=== PATIENT | female | born 1945 | race Caucasian/White ===

== ENCOUNTER 2016-10-10 09:42 | Emergency (ER) | payer OTHER ==
[~2016-10-10 09:42] MED LIST: ADVAIR250 INH; ALBUTEROL IH; ALEVE220 MG PO; APRES25 PO; ASAB PO; ATROVENT HFA17 MCG INH; BIOTIN10 MG PO; BIOTIN5 MG OR; BIOTIN5 MG PO; CALCIUM; CALTRA600D PO; CANNOT RECALL MEDS; CEFT5 PO; CLARITD24H PO; CO Q-10200 MG PO; COREG25 PO; COSAMIN DS1 TAB PO; COZ25 PO; COZ50 PO; CRESTOR10 PO; DOK100 MG PO; DULERA 100 MCG/13 GM INH; DUONEB INH; DURAFLEX PO; FISH OIL; FISH-EPA1000 MG PO; FLEX PO; FLONASE NAS; GLUCCHONDR PO; GLUCOSAMINEPO PO; HALF81 PO; HUMI PO; IPRA17AE; IPRA17AE INH; K-TABS10 MEQ PO; KLOR-CON20 MEQ PO; L20 PO; L40 PO; L80 PO; LIOR10 PO; LIQUITEARS OPH; MAGNESIUM; MAGNESIUM 250 MG; MAGNESIUM PO; MAGNESIUM TAURATE; MAGNESIUM TAURATE PO; MAGOX4 PO; MD ANDERSON MOUTHWAS; METHOC500B PO; MIRALAXPKT PO; MIRAPEX0.75 MG PO; MOBIC; MULTIVIT/MIN PO; NAIL-EX2.5 MG OR; NEUR100 PO; NIACIN 500 PO; NO HOME MEDS; NORCO1 TAB PO; NORV5 PO; PCET PO; POTASSIUM; PR12.5 PO; PRIN10 PO; PROAIR HFA INH; PROTONIX PO; PROVENTSOL INH; PROVHFA INH; REFRESH OPH; SINGULAIR1 PO; SPIRO25 PO; SPIRO50 PO; STERAPRED DS10 MG; TESS; ULTRACET PO; VITAMIN C100 MG PO; VITAMIN D1000 UNI1 PO; VITAMIN D31000 UNIT PO; VITAMIN D400 UNI1 PO; VITC500 PO; Z300 PO; ZOCOR20 PO; [UNRECOGNIZED DRUG - CODE]; [UNRECOGNIZED DRUG - OTHER]; [UNRECOGNIZED DRUG - OTHER]; [UNRECOGNIZED DRUG - OTHER]; [UNRECOGNIZED DRUG - OTHER] PO; [UNRECOGNIZED DRUG - OTHER] PO; [UNRECOGNIZED DRUG - REMARK] PO
[2017-03-25] MEDS ORDERED: VOLTAREN1 % TOP (14:13)
[2017-03-25] MEDS ORDERED: PROTONIX20 MG PO (14:13)
[2017-03-25] MEDS ORDERED: METHOC500B PO ×2 (14:13→14:30)
[2017-03-25] MEDS ORDERED: DSS PO (14:14)
[2017-03-25] MEDS ORDERED: COREG25 PO (14:14)
[2017-03-25] MEDS ORDERED: SEROQUEL25 PO (14:15)
[2017-03-25] MEDS ORDERED: CLARIT10 PO (14:15)
[2017-03-25] MEDS ORDERED: SPIRO25 PO (14:16)
[2017-03-25] MEDS ORDERED: KCL20UDL PO (14:16)
[2017-03-25] MEDS ORDERED: BIOTIN5 MG PO (14:16)
[2017-03-25] MEDS ORDERED: Z300 PO (14:24)
[2017-03-25] MEDS ORDERED: VITC500 PO (14:27)
[2017-03-25] MEDS ORDERED: VITAMIN D31000 UNIT PO (14:28)
== END 2016-10-10 12:00 | disposition home or self-care (01) ==
LOC: ER 09:42
DX: S40.022A Contusion of left upper arm, initial encounter (principal); S40.021A Contusion of right upper arm, initial encounter; S00.81XA Abrasion of other part of head, initial encounter; J44.9 Chronic obstructive pulmonary disease, unspecified; I13.0 Hypertensive heart and chronic kidney disease with heart failure and stage 1 through stage 4 chronic kidney disease, or unspecified chronic kidney disease; N18.9 Chronic kidney disease, unspecified; I50.9 Heart failure, unspecified; Z95.1 Presence of aortocoronary bypass graft; Z88.8 Allergy status to other drugs, medicaments and biological substances; Z88.2 Allergy status to sulfonamides; Z88.5 Allergy status to narcotic agent; Z79.899 Other long term (current) drug therapy; W19.XXXA Unspecified fall, initial encounter
CPT/HCPCS: 73060-LT; 73090-RT; 96372; 99285; A9270-GY; J2800

== ENCOUNTER 2016-11-21 11:02 | Emergency (ER) | payer OTHER ==
[2016-11-21 11:09] LABS: BASOPHILS 0.3 %; BASOPHILS ABSOLUTE 0.03 10/3/uL (0.0-0.16); EOSINOPHILS ABSOLUTE 0.22 10/3/uL (0.0-0.53); ER CBC TAT 0 Hrs 02 Mins; HEMATOCRIT 42.7 % (36.0-48.0); HEMOGLOBIN 13.9 g/dL (12.0-16.0); IMMATURE GRANULOCYTES 0.4 %; IMMATURE GRANULOCYTES ABSOLUTE 0.04 10/3/uL (0.0-0.11); LYMPHOCYTES 21.6 %; LYMPHOCYTES ABSOLUTE 2.42 10/3/uL (0.67-4.30); MEAN CORPUS HGB CONC 32.6 g/dL (32.0-36.0); MEAN CORPUSCULAR HEMOGLOB 30.5 pg (26.0-34.0); MEAN CORPUSCULAR VOLUME 93.8 fL (80-100); MEAN PLATELET VOLUME 10.7 fL (9.2-13.0); MONOCYTES 7.6 %; MONOCYTES ABSOLUTE 0.85 10/3/uL (0.21-1.20); NEUTROPHILS 68.1 %; NEUTROPHILS ABSOLUTE 7.64 10/3/uL (2.02-8.40); PLATELET COUNT 192 10/3/uL (150-400); RBC DISTRIBUTION WIDTH 15.9 % (12.0-16.0); RED CELL COUNT 4.55 10/6/uL (4.0-5.6); WHITE BLOOD CELLS 11.2 10/3/uL (4.5-10.5)
[2016-11-21 11:10] LABS: MANUAL DIFF NO %
[2016-11-21 11:28] LABS: A/G RATIO 1.4 (0.7-1.9); ALBUMIN 3.9 G/DL (3.5-5.0); ALKALINE PHOSPHATASE 58 U/L (45-117); BUN (BLOOD UREA NITROGEN) 14 MG/DL (6-23); CALCIUM, SERUM 10.3 MG/DL (8.5-10.4); CHLORIDE, SERUM 102 MMOL/L (96-112); CO2 (CARBON DIOXIDE) 37 MMOL/L (24-34); CREATININE 1.13 MG/DL (0.55-1.02); GFR AFRICAN AMERICAN 56 ML/MIN (>=60); GFR NON AFRICAN AMERICAN 49 ML/MIN (>=60); GLOBULIN 2.7 G/DL (2.5-4.1); GLUCOSE, SERUM 100 MG/DL (60-99); POTASSIUM, SERUM 3.9 MMOL/L (3.5-5.3); SGOT(AST) 16 U/L (5-40); SGPT(ALT) 18 U/L (5-65); SODIUM, SERUM 144 MMOL/L (135-148); TOTAL BILIRUBIN 0.4 MG/DL (0-1.2); TOTAL PROTEIN 6.6 G/DL (6.0-8.5)
[2016-11-21 13:37] LABS: ASCORBIC ACID (UR NOT ORDER) 40 (NEG); BILIRUBIN, URINE NEGATIVE (NEG); ER URINALYSIS TAT 0 Hrs 16 Mins; KETONE, URINE NEGATIVE (NEG); LEUKOCYTE ESTERASE(NOT OR TRACE (NEG); NITRITE (URINE) NEG (NEG); WBC (NOT ORDERED) (RFLEX) 1 (0-5)
[2017-03-25] MEDS ORDERED: METHOC500B PO ×2 (14:13→14:30)
[2017-03-25] MEDS ORDERED: VOLTAREN1 % TOP (14:13)
[2017-03-25] MEDS ORDERED: PROTONIX20 MG PO (14:13)
[2017-03-25] MEDS ORDERED: DSS PO (14:14)
[2017-03-25] MEDS ORDERED: COREG25 PO (14:14)
[2017-03-25] MEDS ORDERED: CLARIT10 PO (14:15)
[2017-03-25] MEDS ORDERED: SEROQUEL25 PO (14:15)
[2017-03-25] MEDS ORDERED: SPIRO25 PO (14:16)
[2017-03-25] MEDS ORDERED: KCL20UDL PO (14:16)
[2017-03-25] MEDS ORDERED: BIOTIN5 MG PO (14:16)
[2017-03-25] MEDS ORDERED: Z300 PO (14:24)
[2017-03-25] MEDS ORDERED: VITC500 PO (14:27)
[2017-03-25] MEDS ORDERED: VITAMIN D31000 UNIT PO (14:28)
== END 2016-11-21 16:15 | disposition home or self-care (01) ==
LOC: ER 11:02
PROVIDERS: Nurse Practitioner
DX: R10.84 Generalized abdominal pain (principal); D72.829 Elevated white blood cell count, unspecified; J44.9 Chronic obstructive pulmonary disease, unspecified; I13.0 Hypertensive heart and chronic kidney disease with heart failure and stage 1 through stage 4 chronic kidney disease, or unspecified chronic kidney disease; I50.9 Heart failure, unspecified; N18.9 Chronic kidney disease, unspecified; Z95.1 Presence of aortocoronary bypass graft; Z90.710 Acquired absence of both cervix and uterus; Z88.2 Allergy status to sulfonamides; Z88.1 Allergy status to other antibiotic agents; Z88.5 Allergy status to narcotic agent; Z88.8 Allergy status to other drugs, medicaments and biological substances; Z79.82 Long term (current) use of aspirin; Z79.899 Other long term (current) drug therapy
CPT/HCPCS: 74176; 80053; 81001; 83605; 83690; 85025; 96374; 96375; 99285; J2405

== ENCOUNTER 2016-12-12 11:33 | Inpatient (IN) | payer OTHER ==
--- NOTE | ~2016-12-12 | DS ---
Discharge Summary [facility] [address] [place]. [address] NAME: YOLIS BARRERA : 43 STATUS : DIS IN PAT#: [id number] AGE: 71 ADM/REG DATE : 12/12/16 MR#: [id number] REPORT SERV DATE: 12/23/16 DICTATED BY: YEN ZAMORA DATE: 12/22/16 REPORT STATUS : Draft TRANSCRIBED BY: MODL DATE: 12/22/16 ADMISSION DATE: 12/12/2016 DISCHARGE DATE: 12/22/2016 HOSPITAL COURSE: A 71-year-old female, resident at [facility] with known history of COPD, CKD 3, chronic right lower extremity ulcer. The patient has a known history of hypertension, lymphedema, chronic pain. The patient came in with encephalopathy, rapidly progressive the last 1-2 months. The patient had imaging including CT of the brain that did not show any acute pathology, just actually chronic microvascular white matter ischemic changes, chronic right-sided craniotomy for hemorrhagic intracranial bleed at that time. She then had a subsequent CT by me given her concern for non-improving encephalopathy and was found to be atrophy in hemisphere to be ventriculomegaly with moderate extensive old deep white matter ischemic changes. The patient given her unexplained rapid encephalopathy aside from dementia as an explanation had a lumbar puncture. It was a bloody tap and had 93 white blood cells. I asked for Infectious Disease. They thought it was a traumatic tap. Crypto was negative. The strep antigen was negative. Neisseria meningitis is negative. Influenza negative. Blood cultures, no growth to date. Gram stain, culture, CSF negative. As a result, the patient did not have any normal pressure hydrocephalus. Concerned that she did not have an increased opening pressures documented on lumbar puncture, so the patient likely has progressive dementia, unfortunately possible Pick, would defer to Neurology as an outpatient regarding the management. She should do bladder training exercises as an outpatient, do swallow study. No witnessed laryngeal penetration and tracheal aspiration, however, should have a mechanical diet as prescribed. DISCHARGE MEDICATIONS: Include: Diamox will not be given, rather just do Lasix 40 p.o. daily, KCl 10 mEq p.o. daily, allopurinol 300 p.o. daily, Artificial Tears, aspirin 81 p.o. daily, Voltaren gel, Colace, carvedilol 25 p.o. b.i.d., lactulose 30 mL p.o. t.i.d., titrate to three bowel movements a day, Megace, Protonix home dose, Seroquel 12.5 p.o. at bedtime. We will not give Florastor. Also give sodium bicarb 1300 p.o. b.i.d. just for seven days. See rest of my orders. CONSULTS: Infectious Disease. DISCHARGE DIAGNOSES: Encephalopathy due to progressive dementia, seems rapid in onset; complicated urinary tract infection. She already finished her ceftriaxone. Hyperalbuminemia, dementia, failure to thrive, restrictive lung disease, and hypertension. DICTATED BY: Yen Zamora DO WST/ZULEYMA Discharge Summary [address] [address] NAME: YOLIS BARRERA : 43 STATUS : DIS IN PAT#: [id number] AGE: 71 ADM/REG DATE : 12/12/16 MR#: [id number] REPORT SERV DATE: 12/23/16 DICTATED BY: YEN ZAMORA DATE: 12/22/16 REPORT STATUS : Draft TRANSCRIBED BY: ZULEYMA DATE: 12/22/16 Yen Zamora DO / [id number] CC: Milli Pillai M.D.
--- NOTE | ~2016-12-12 | HP ---
History And Physical [place] [id number] [facility] [place]. [address] NAME: YOLIS BARRERA : 43 STATUS : ADM IN [facility]#: [id number] AGE: 71 ADM/REG DATE : 12/12/16 MR#: [id number] REPORT SERV DATE: 12/12/16 DICTATED BY: SAW CONRAD DATE: 12/12/16 REPORT STATUS : Draft TRANSCRIBED BY: MODAshlee DATE: 12/12/16 DATE OF ADMISSION: 12/12/2016 CHIEF COMPLAINT: Encephalopathy unknown duration. HISTORY OF PRESENT ILLNESS: A 71-year-old white female residing at [facility], presenting with COPD, chronic kidney disease stage III, chronic right lower extremity ulcer, presenting with encephalopathy unknown duration. The patient was admitted for further evaluation regarding her change in mental status. The patient was able to provide history although a little bit slow. The patient does know that she is at [facility] and she came in to the ER because of urination/dysuria. The patient states that she has suprapubic discomfort but denies any hematuria. In addition, she denies any fevers, chills, nausea, vomiting, and back pain. She does have a history of UTI as per ER records. PAST MEDICAL HISTORY: As above. MEDICATIONS: The patient takes 1. Aspirin 81 mg p.o. daily. 2. Multivitamin one tab daily. 3. Potassium extended release 10 mEq daily. 4. Spironolactone 25 mg p.o. daily. 5. Vitamin C 500 mg two tablets p.o. daily. 6. Vitamin D3 1000 units 1 tab p.o. daily. 7. Allopurinol 300 mg p.o. daily. 8. MiraLAX powder 17 g p.o. daily. 9. Quetiapine 25 mg p.o. b.i.d. 10.Potassium chloride 10 mEq p.o. b.i.d. 11.Coreg 12.5 mg daily. 12.Breo Ellipta 100/25 one puff b.i.d. 13.Docusate 100 mg p.o. daily. 14.Lasix 20 mg p.o. three times a day. 15.Magnesium oxide 400 mg p.o. daily. 16.Methocarbamol 1 tab p.o. b.i.d. 17.Protonix 20 mg one tablet p.o. b.i.d. 18.Flovent 50 mcg 1 puff b.i.d. 19.Oxycodone 5/325, one tablet q.12 hours. 20.Liquid Tears 1.4% 2 drops b.i.d. 21.DuoNeb inhaled nebulizers q.4 hours p.r.n. 22.Singulair 10 mg p.o. b.i.d. 23.Voltaren Gel as directed 2 to 4 times per day. 24.Oxycodone 7.5/325 one tab q.6 hours p.r.n. for pain. ALLERGIES: TO METOPROLOL, BENAZEPRIL, SULFA, CODEINE, DARVON, AND ZITHROMAX. SOCIAL HISTORY: Nonsmoker nondrinker. History And Physical [address] [address] NAME: YOLIS BARRERA : 43 STATUS : ADM IN [facility]#: [id number] AGE: 71 ADM/REG DATE : 12/12/16 MR#: [id number] REPORT SERV DATE: 12/12/16 DICTATED BY: SAW CONRAD DATE: 12/12/16 REPORT STATUS : Draft TRANSCRIBED BY: ZULEYMA DATE: 12/12/16 FAMILY HISTORY: Significant for hypertension and coronary artery disease. REVIEW OF SYSTEMS: 10-point review of systems conducted, which were negative except for above complaints. PHYSICAL EXAMINATION: VITAL SIGNS: Temperature 97.6, pulse of 94, respiratory rate 16, blood pressure 132/80, and O2 saturation 95% on room air. HEAD AND NECK: Normocephalic, atraumatic. CARDIOVASCULAR: S1, S2. Regular rate and rhythm. LUNGS: Good air entry. No wheeze, rales, or rhonchi. ABDOMEN: Soft. Positive tenderness, suprapubic, nondistended. Positive bowel sounds. No organomegaly. EXTREMITIES: No clubbing, cyanosis, or edema. NEUROLOGIC: The patient is awake and alert. Oriented to time and place. No focal deficits appreciated. LABORATORY DATA: Sodium 141, potassium 3.5, chloride 101, bicarb 36, BUN 22, creatinine 1.8, glucose 120, GFR 51, calcium 10.8, total protein 7.1, albumin 3.8, globulin 3.3, total bilirubin 1.4, alkaline phosphatase 65, ALT 19, and AST 17. Chest x-ray is negative for acute infiltrates. WBC 13.1, hemoglobin 14.5, hematocrit 43.7, and platelets 208. ASSESSMENT AND PLAN: 1. Encephalopathy secondary to UTI. We will start the patient on Rocephin 1 g IV every 24 hours. In addition, start blood cultures x2 and IV fluids, half NS at 60 mL an hour. 2. Urinary tract infection secondary cause of problem #1. Again blood culture x2, on Rocephin. 3. COPD currently stable. No signs of shortness of breath. Continue the patient's breathing treatment DuoNebs. 4. Chronic kidney disease, stage III. Currently the patient's GFR is 51. Continue IV hydration. The patient states she has decreased liquid and p.o. intake due to not having any appetite. More likely this is secondary to UTI. 5. DVT prophylaxis. Start the patient on heparin. NIMESH/ZULEYMA Saw Conrad MD / [id number] CC: Saw Conrad MD History And Physical [address] [address] NAME: YOLIS BARRERA : 43 STATUS : ADM IN [facility]#: [id number] AGE: 71 ADM/REG DATE : 12/12/16 MR#: [id number] REPORT SERV DATE: 12/12/16 DICTATED BY: SAW CONRAD DATE: 12/12/16 REPORT STATUS : Draft TRANSCRIBED BY: MODL DATE: 12/12/16 Bud Kaur M.D.
--- NOTE | ~2016-12-12 | CN ---
Consultation Report [facility] [address] [place]. [address] NAME: YOLIS BARRERA : 43 STATUS : ADM IN PAT#: [id number] AGE: 71 ADM/REG DATE : 12/12/16 MR#: [id number] REPORT SERV DATE: 12/19/16 DICTATED BY: KATEY CALIXTO DATE: 12/19/16 REPORT STATUS : Draft TRANSCRIBED BY: MODL DATE: 12/19/16 INFECTIOUS DISEASE CONSULTATION DATE OF CONSULTATION: REASON FOR REFERRAL: Evaluation and treatment of possible [employer] infection. HISTORY OF PRESENT ILLNESS: The patient is a 71-year-old female. She has a history of chronic obstructive pulmonary disease, chronic renal insufficiency, venous stasis ulcer in lower extremities. She has had worsening mental status over a number of months and according to the family, Dr. Hood thought a more precipitous decline in the last two months with less and less activity, more difficult and slowed speech, difficult memory, a much more rapid course than one would expect from simple dementia. For this reason, she was admitted for workup. She has had no fevers, chills, malaise, or flu-like symptoms. She has not complained of a headache, so essentially there has not been anything that would point to a central nervous system infection. She did have some dysuria, and a urinalysis was checked at admission and she did have marked pyuria, and a culture grew greater than 100,000 colonies of E coli, so it was thought that possibly things are worse because of urinary tract infection, but an appropriate antibiotic in the form of Rocephin has been given now for a week and she has demonstrated no improvement. She has had imaging that shows evidence from a past craniotomy, but shows no acute changes. A lumbar puncture was performed and it was abnormal, but the spinal fluid was very bloody. She became combative while the needle was in, and the initially clear fluid that was seen prior to them being able to collect it quickly became bloody. The analysis showed 23,000 red cells; 93 white cells; 12% lymphs; 12% monos; 76% segs; glucose of 56; protein 90.4 and has been submitted for cultures. PAST MEDICAL HISTORY: Otherwise, noncontributory. MEDICATIONS: She is on Rocephin. ALLERGIES: SHE HAS NO KNOWN ANTIMICROBIAL ALLERGIES. SOCIAL HISTORY: She is retired certified medical asst. Nonsmoker. No history of alcohol or substance abuse. PHYSICAL EXAMINATION: GENERAL: She is nontoxic appearing. She wakes up. She actually knew me from her work in the past and immediately recognized me, but speech response to questions is slowed and much different from the last time I saw her two years ago. VITAL SIGNS: Her temperature has been normal throughout the week that she has been here and presently is 98.4 with a pulse of 74, respirations 18, blood pressure 136/62, weight 55 kg. HEENT: Sclerae are clear. No oral lesions. NECK: Supple without meningeal signs or lymphadenopathy. LUNGS: Clear. Consultation Report [place] [id number] [facility] [place]. [address] NAME: YOLIS BARRERA : 43 STATUS : ADM IN [facility]#: [id number] AGE: 71 ADM/REG DATE : 12/12/16 MR#: [id number] REPORT SERV DATE: 12/19/16 DICTATED BY: KATEY CALIXTO DATE: 12/19/16 REPORT STATUS : Draft TRANSCRIBED BY: ZULEYMA DATE: 12/19/16 HEART: Regular rate and rhythm. ABDOMEN: Soft and nontender. Positive bowel sounds. SKIN: There are no rashes noted. LABORATORY DATA: Her white blood cell count had been 13.1 when she came in, down to 9.1 on 12/13, 14.7 yesterday, 10.9 today with hematocrit of 37 and platelets 193. BUN and creatinine 6 and 0.63. Procalcitonin less than 0.05. Blood cultures taken at admission have remained negative. IMPRESSION: I suspect that the lumbar puncture results are all due to the traumatic tap. There is nothing to suggest infection. The only exception might be Cryptococcus, which would cause a much more subtle picture and subtle CSF findings. RECOMMENDATIONS: 1. Would not recommend that any new antimicrobials be added at this point based on the lumbar puncture. 2. Agree with the Rocephin for the UTI, should be able to stop that soon. 3. Check cryptococcal antigen on the spinal fluid. 4. We will follow up again tomorrow. I appreciate very much your consulting on this patient. LAURA/ZULEYMA Katey Calixto M.D. / [id number] CC: Milli Pillai M.D.
[2016-12-12 12:35] LABS: BASOPHILS 0.2 %; BASOPHILS ABSOLUTE 0.02 10/3/uL (0.0-0.16); EOSINOPHILS 0.8 %; HEMATOCRIT 43.7 % (36.0-48.0); HEMOGLOBIN 14.5 g/dL (12.0-16.0); IMMATURE GRANULOCYTES 0.2 %; IMMATURE GRANULOCYTES ABSOLUTE 0.02 10/3/uL (0.0-0.11); LYMPHOCYTES 16.2 %; LYMPHOCYTES ABSOLUTE 2.13 10/3/uL (0.67-4.30); MANUAL DIFF NO %; MEAN CORPUS HGB CONC 33.2 g/dL (32.0-36.0); MEAN CORPUSCULAR HEMOGLOB 30.8 pg (26.0-34.0); MEAN CORPUSCULAR VOLUME 92.8 fL (80-100); MEAN PLATELET VOLUME 11.2 fL (9.2-13.0); MONOCYTES 9.6 %; MONOCYTES ABSOLUTE 1.26 10/3/uL (0.21-1.20); NEUTROPHILS ABSOLUTE 9.59 10/3/uL (2.02-8.40); PLATELET COUNT 208 10/3/uL (150-400); RBC DISTRIBUTION WIDTH 15.2 % (12.0-16.0); RED CELL COUNT 4.71 10/6/uL (4.0-5.6); WHITE BLOOD CELLS 13.1 10/3/uL (4.5-10.5)
[2016-12-12 12:55] LABS: ALBUMIN 3.8 G/DL (3.5-5.0); ALKALINE PHOSPHATASE 65 U/L (45-117); CALCIUM, SERUM 10.8 MG/DL (8.5-10.4); CHLORIDE, SERUM 101 MMOL/L (96-112); CO2 (CARBON DIOXIDE) 36 MMOL/L (24-34); CREATININE 1.08 MG/DL (0.55-1.02); GFR AFRICAN AMERICAN 59 ML/MIN (>=60); GFR NON AFRICAN AMERICAN 51 ML/MIN (>=60); GLUCOSE, SERUM 120 MG/DL (60-99); POTASSIUM, SERUM 3.5 MMOL/L (3.5-5.3); SGOT(AST) 17 U/L (5-40); SGPT(ALT) 19 U/L (5-65); SODIUM, SERUM 141 MMOL/L (135-148); TOTAL PROTEIN 7.1 G/DL (6.0-8.5); TROPONIN I <0.02 NG/ML (<0.05)
[2016-12-12 12:56] LABS: A/G RATIO 1.2 (0.7-1.9); BUN (BLOOD UREA NITROGEN) 23 MG/DL (6-23); GLOBULIN 3.3 G/DL (2.5-4.1); TOTAL BILIRUBIN 1.4 MG/DL (0-1.2)
[2016-12-12 12:59] LABS: ASCORBIC ACID (UR NOT ORDER) 40 (NEG); BILIRUBIN, URINE NEGATIVE (NEG); ER URINALYSIS TAT 0 Hrs 12 Mins; KETONE, URINE NEGATIVE (NEG); LEUKOCYTE ESTERASE(NOT OR LARGE (NEG); NITRITE (URINE) NEG (NEG); WBC (NOT ORDERED) (RFLEX) > 182 (0-5)
[2016-12-12] MEDS ORDERED: HALF81 PO (14:08)
[2016-12-12] MEDS ORDERED: MULTIVITAMI1 PO (14:09)
[2016-12-12] MEDS ORDERED: KLOR-CON 1010 MEQ PO (14:10)
[2016-12-12] MEDS ORDERED: SPIRO25 PO (14:10)
[2016-12-12] MEDS ORDERED: VITC500 PO (14:11)
[2016-12-12] MEDS ORDERED: VITAMIN D31000 UNIT PO (14:11)
[2016-12-12] MEDS ORDERED: Z300 PO (14:12)
[2016-12-12] MEDS ORDERED: SEROQUEL25 PO (14:13)
[2016-12-12] MEDS ORDERED: METPAKSF PO (14:13)
[2016-12-12] MEDS ORDERED: KCL20UDL PO (14:17)
[2016-12-12] MEDS ORDERED: COREG12 PO (14:19)
[2016-12-12] MEDS ORDERED: BREO ELLIPTA INH (14:22)
[2016-12-12] MEDS ORDERED: DOK100 MG PO (14:23)
[2016-12-12] MEDS ORDERED: L40 PO (14:23)
[2016-12-12] MEDS ORDERED: METHOC500B PO (14:24)
[2016-12-12] MEDS ORDERED: MAGOX4 PO (14:24)
[2016-12-12] MEDS ORDERED: PROTONIX20 MG PO (14:25)
[2016-12-12] MEDS ORDERED: FLOVENT DISK50 MCG INH (14:26)
[2016-12-12] MEDS ORDERED: PCET PO (14:27)
[2016-12-12] MEDS ORDERED: LIQUID TEARS OPH (14:28)
[2016-12-12] MEDS ORDERED: DUONEB INH ×2 (14:29→14:31)
[2016-12-12] MEDS ORDERED: SINGULAIR1 PO (14:31)
[2016-12-12] MEDS ORDERED: ACET500CAP PO (14:32)
[2016-12-12] MEDS ORDERED: VOLTAREN1 % TOP (14:33)
[2016-12-12] MEDS ORDERED: PERCOCET 7.5/321 TAB PO (14:34)
[2016-12-13 06:35] LABS: BASOPHILS 0.2 %; BASOPHILS ABSOLUTE 0.02 10/3/uL (0.0-0.16); EOSINOPHILS ABSOLUTE 0.18 10/3/uL (0.0-0.53); HEMATOCRIT 40.2 % (36.0-48.0); HEMOGLOBIN 13.1 g/dL (12.0-16.0); IMMATURE GRANULOCYTES 0.1 %; IMMATURE GRANULOCYTES ABSOLUTE 0.01 10/3/uL (0.0-0.11); LYMPHOCYTES 35.2 %; LYMPHOCYTES ABSOLUTE 3.21 10/3/uL (0.67-4.30); MEAN CORPUS HGB CONC 32.6 g/dL (32.0-36.0); MEAN CORPUSCULAR HEMOGLOB 30.6 pg (26.0-34.0); MEAN CORPUSCULAR VOLUME 93.9 fL (80-100); MEAN PLATELET VOLUME 11.8 fL (9.2-13.0); MONOCYTES 11.5 %; MONOCYTES ABSOLUTE 1.05 10/3/uL (0.21-1.20); NEUTROPHILS ABSOLUTE 4.64 10/3/uL (2.02-8.40); PLATELET COUNT 202 10/3/uL (150-400); RBC DISTRIBUTION WIDTH 15.2 % (12.0-16.0); RED CELL COUNT 4.28 10/6/uL (4.0-5.6); WHITE BLOOD CELLS 9.1 10/3/uL (4.5-10.5)
[2016-12-13 06:36] LABS: MANUAL DIFF NO %
[2016-12-13 06:50] LABS: A/G RATIO 1.1 (0.7-1.9); ALBUMIN 3.3 G/DL (3.5-5.0); ALKALINE PHOSPHATASE 57 U/L (45-117); CALCIUM, SERUM 10.3 MG/DL (8.5-10.4); CHLORIDE, SERUM 102 MMOL/L (96-112); CO2 (CARBON DIOXIDE) 33 MMOL/L (24-34); CREATININE 0.86 MG/DL (0.55-1.02); GFR AFRICAN AMERICAN 78 ML/MIN (>=60); GFR NON AFRICAN AMERICAN 67 ML/MIN (>=60); GLOBULIN 2.9 G/DL (2.5-4.1); PHOSPHORUS, SERUM 3.1 MG/DL (2.5-4.5); POTASSIUM, SERUM 3.3 MMOL/L (3.5-5.3); SGOT(AST) 19 U/L (5-40); SGPT(ALT) 19 U/L (5-65); SODIUM, SERUM 139 MMOL/L (135-148); TOTAL PROTEIN 6.2 G/DL (6.0-8.5)
[2016-12-13 06:52] LABS: BUN (BLOOD UREA NITROGEN) 19 MG/DL (6-23); GLUCOSE, SERUM 81 MG/DL (60-99)
[2016-12-14 15:37] LABS: BASOPHILS 0.2 %; BASOPHILS ABSOLUTE 0.02 10/3/uL (0.0-0.16); EOSINOPHILS 0.3 %; EOSINOPHILS ABSOLUTE 0.04 10/3/uL (0.0-0.53); HEMATOCRIT 37.2 % (36.0-48.0); HEMOGLOBIN 12.3 g/dL (12.0-16.0); IMMATURE GRANULOCYTES 0.3 %; IMMATURE GRANULOCYTES ABSOLUTE 0.04 10/3/uL (0.0-0.11); LYMPHOCYTES ABSOLUTE 1.21 10/3/uL (0.67-4.30); MEAN CORPUS HGB CONC 33.1 g/dL (32.0-36.0); MEAN CORPUSCULAR VOLUME 93.7 fL (80-100); MEAN PLATELET VOLUME 11.5 fL (9.2-13.0); MONOCYTES 3.7 %; MONOCYTES ABSOLUTE 0.45 10/3/uL (0.21-1.20); NEUTROPHILS 85.5 %; PLATELET COUNT 161 10/3/uL (150-400); RBC DISTRIBUTION WIDTH 14.9 % (12.0-16.0); RED CELL COUNT 3.97 10/6/uL (4.0-5.6); WHITE BLOOD CELLS 12.2 10/3/uL (4.5-10.5)
[2016-12-14 15:38] LABS: MANUAL DIFF NO %
[2016-12-14 16:16] LABS: CALCIUM, SERUM 10.2 MG/DL (8.5-10.4); CHLORIDE, SERUM 105 MMOL/L (96-112); CO2 (CARBON DIOXIDE) 30 MMOL/L (24-34); CREATININE 0.83 MG/DL (0.55-1.02); GFR AFRICAN AMERICAN 82 ML/MIN (>=60); GFR NON AFRICAN AMERICAN 70 ML/MIN (>=60); POTASSIUM, SERUM 3.8 MMOL/L (3.5-5.3); SODIUM, SERUM 141 MMOL/L (135-148)
[2016-12-14 16:17] LABS: BUN (BLOOD UREA NITROGEN) 13 MG/DL (6-23); GLUCOSE, SERUM 104 MG/DL (60-99)
[2016-12-14 16:19] LABS: CALCIUM IONIZED 5.1 MG/DL (3.80-4.80)
[2016-12-14 17:16] LABS: PROCALCITONIN <0.05 ng/mL (<0.5)
[2016-12-15 04:42] LABS: BUN (BLOOD UREA NITROGEN) 12 MG/DL (6-23); CHLORIDE, SERUM 108 MMOL/L (96-112); CO2 (CARBON DIOXIDE) 28 MMOL/L (24-34); CREATININE 0.74 MG/DL (0.55-1.02); GFR AFRICAN AMERICAN 94 ML/MIN (>=60); GFR NON AFRICAN AMERICAN 81 ML/MIN (>=60); POTASSIUM, SERUM 3.5 MMOL/L (3.5-5.3); SODIUM, SERUM 144 MMOL/L (135-148)
[2016-12-15 04:44] LABS: GLUCOSE, SERUM 79 MG/DL (60-99)
[2016-12-15 15:00] LABS: ASCORBIC ACID (UR NOT ORDER) NEG (NEG); BILIRUBIN, URINE NEGATIVE (NEG); KETONE, URINE TRACE MG/DL (NEG); LEUKOCYTE ESTERASE(NOT OR LARGE (NEG)
[2016-12-15 15:01] LABS: WBC (NOT ORDERED) (RFLEX) > 182 (0-5)
[2016-12-16 04:59] LABS: BASOPHILS 0.2 %; BASOPHILS ABSOLUTE 0.02 10/3/uL (0.0-0.16); EOSINOPHILS 2.1 %; EOSINOPHILS ABSOLUTE 0.24 10/3/uL (0.0-0.53); HEMATOCRIT 38.7 % (36.0-48.0); HEMOGLOBIN 12.7 g/dL (12.0-16.0); IMMATURE GRANULOCYTES 0.2 %; IMMATURE GRANULOCYTES ABSOLUTE 0.02 10/3/uL (0.0-0.11); LYMPHOCYTES 21.9 %; LYMPHOCYTES ABSOLUTE 2.56 10/3/uL (0.67-4.30); MANUAL DIFF NO %; MEAN CORPUS HGB CONC 32.8 g/dL (32.0-36.0); MEAN CORPUSCULAR HEMOGLOB 30.9 pg (26.0-34.0); MEAN CORPUSCULAR VOLUME 94.2 fL (80-100); MEAN PLATELET VOLUME 11.8 fL (9.2-13.0); MONOCYTES 5.7 %; MONOCYTES ABSOLUTE 0.66 10/3/uL (0.21-1.20); NEUTROPHILS 69.9 %; NEUTROPHILS ABSOLUTE 8.17 10/3/uL (2.02-8.40); PLATELET COUNT 188 10/3/uL (150-400); RBC DISTRIBUTION WIDTH 15.2 % (12.0-16.0); RED CELL COUNT 4.11 10/6/uL (4.0-5.6); WHITE BLOOD CELLS 11.7 10/3/uL (4.5-10.5)
[2016-12-16 05:12] LABS: BUN (BLOOD UREA NITROGEN) 11 MG/DL (6-23); CALCIUM, SERUM 10.5 MG/DL (8.5-10.4); CHLORIDE, SERUM 111 MMOL/L (96-112); CO2 (CARBON DIOXIDE) 27 MMOL/L (24-34); CREATININE 0.71 MG/DL (0.55-1.02); GFR AFRICAN AMERICAN 99 ML/MIN (>=60); GFR NON AFRICAN AMERICAN 85 ML/MIN (>=60); GLUCOSE, SERUM 87 MG/DL (60-99); POTASSIUM, SERUM 3.6 MMOL/L (3.5-5.3); SODIUM, SERUM 146 MMOL/L (135-148)
[2016-12-16 05:48] LABS: PROCALCITONIN <0.05 ng/mL (<0.5)
[2016-12-18 10:21] LABS: BASOPHILS 0.3 %; BASOPHILS ABSOLUTE 0.05 10/3/uL (0.0-0.16); EOSINOPHILS 2.5 %; EOSINOPHILS ABSOLUTE 0.37 10/3/uL (0.0-0.53); HEMATOCRIT 37.7 % (36.0-48.0); HEMOGLOBIN 12.2 g/dL (12.0-16.0); IMMATURE GRANULOCYTES 1.4 %; LYMPHOCYTES 16.5 %; LYMPHOCYTES ABSOLUTE 2.42 10/3/uL (0.67-4.30); MEAN CORPUS HGB CONC 32.4 g/dL (32.0-36.0); MEAN CORPUSCULAR HEMOGLOB 29.6 pg (26.0-34.0); MEAN CORPUSCULAR VOLUME 91.5 fL (80-100); MEAN PLATELET VOLUME 12.4 fL (9.2-13.0); MONOCYTES 7.6 %; MONOCYTES ABSOLUTE 1.12 10/3/uL (0.21-1.20); NEUTROPHILS 71.7 %; NEUTROPHILS ABSOLUTE 10.53 10/3/uL (2.02-8.40); PLATELET COUNT 186 10/3/uL (150-400); RBC DISTRIBUTION WIDTH 15.3 % (12.0-16.0); RED CELL COUNT 4.12 10/6/uL (4.0-5.6); WHITE BLOOD CELLS 14.7 10/3/uL (4.5-10.5)
[2016-12-18 10:23] LABS: MANUAL DIFF NO %
[2016-12-18 10:26] LABS: BUN (BLOOD UREA NITROGEN) 9 MG/DL (6-23); CALCIUM, SERUM 9.9 MG/DL (8.5-10.4); CHLORIDE, SERUM 113 MMOL/L (96-112); CO2 (CARBON DIOXIDE) 26 MMOL/L (24-34); CREATININE 0.61 MG/DL (0.55-1.02); GFR AFRICAN AMERICAN 105 ML/MIN (>=60); GFR NON AFRICAN AMERICAN 91 ML/MIN (>=60); GLUCOSE, SERUM 95 MG/DL (60-99); PHOSPHORUS, SERUM 2.6 MG/DL (2.5-4.5); SODIUM, SERUM 146 MMOL/L (135-148)
[2016-12-18 13:08] LABS: ASCORBIC ACID (UR NOT ORDER) NEG (NEG); BILIRUBIN, URINE NEGATIVE (NEG); KETONE, URINE NEGATIVE (NEG); LEUKOCYTE ESTERASE(NOT OR TRACE (NEG); WBC (NOT ORDERED) (RFLEX) 11 (0-5)
[2016-12-18 13:30] LABS: FOLATE 42.3 NG/ML (>5.2)
[2016-12-19 06:46] LABS: BASOPHILS 0.2 %; BASOPHILS ABSOLUTE 0.02 10/3/uL (0.0-0.16); EOSINOPHILS 3.7 %; HEMOGLOBIN 12.2 g/dL (12.0-16.0); IMMATURE GRANULOCYTES 0.2 %; IMMATURE GRANULOCYTES ABSOLUTE 0.02 10/3/uL (0.0-0.11); LYMPHOCYTES 23.6 %; LYMPHOCYTES ABSOLUTE 2.57 10/3/uL (0.67-4.30); MEAN CORPUSCULAR HEMOGLOB 30.7 pg (26.0-34.0); MEAN CORPUSCULAR VOLUME 93.2 fL (80-100); MEAN PLATELET VOLUME 11.4 fL (9.2-13.0); MONOCYTES 6.8 %; MONOCYTES ABSOLUTE 0.74 10/3/uL (0.21-1.20); NEUTROPHILS 65.5 %; NEUTROPHILS ABSOLUTE 7.15 10/3/uL (2.02-8.40); PLATELET COUNT 193 10/3/uL (150-400); RBC DISTRIBUTION WIDTH 15.4 % (12.0-16.0); RED CELL COUNT 3.97 10/6/uL (4.0-5.6); WHITE BLOOD CELLS 10.9 10/3/uL (4.5-10.5)
[2016-12-19 06:52] LABS: MANUAL DIFF NO %
[2016-12-19 06:53] LABS: BUN (BLOOD UREA NITROGEN) 6 MG/DL (6-23); CALCIUM, SERUM 10.4 MG/DL (8.5-10.4); CHLORIDE, SERUM 114 MMOL/L (96-112); CO2 (CARBON DIOXIDE) 25 MMOL/L (24-34); CREATININE 0.63 MG/DL (0.55-1.02); GFR AFRICAN AMERICAN 104 ML/MIN (>=60); GFR NON AFRICAN AMERICAN 90 ML/MIN (>=60); GLUCOSE, SERUM 88 MG/DL (60-99); PHOSPHORUS, SERUM 2.7 MG/DL (2.5-4.5); POTASSIUM, SERUM 4.1 MMOL/L (3.5-5.3); SODIUM, SERUM 146 MMOL/L (135-148)
[2016-12-19 11:32] LABS: GLUCOSE CSF 56 MG/DL (45-70); TOTAL PROTEIN, CSF 90.4 MG/DL (15-45)
[2016-12-19 11:37] LABS: CSF BASO 0 % (NO REF RANGE); CSF EOS 0 % (0-1); CSF LYMPH (NOT ORD) 12 % (28-96); CSF MONO 12 % (16-56); CSF SEGS (NOT ORD) 76 % (0-7)
[2016-12-19 11:38] LABS: CSF WBC (NOT ORD) 93 /uL (0-10)
[2016-12-19 11:40] LABS: CSF APPEARANCE (NOT ORD) BLOODY (CLEAR); CSF COLOR (NOT ORD) RED (COLORLESS); CSF RBC (NOT ORD) 23000 MM3 (NO REFERENCE); CSF XANTHROCHROMIA NEG (NEG)
[2016-12-20 04:57] LABS: BASOPHILS 0.2 %; BASOPHILS ABSOLUTE 0.02 10/3/uL (0.0-0.16); EOSINOPHILS ABSOLUTE 0.33 10/3/uL (0.0-0.53); HEMATOCRIT 35.6 % (36.0-48.0); HEMOGLOBIN 11.7 g/dL (12.0-16.0); IMMATURE GRANULOCYTES 0.3 %; IMMATURE GRANULOCYTES ABSOLUTE 0.03 10/3/uL (0.0-0.11); LYMPHOCYTES 21.6 %; LYMPHOCYTES ABSOLUTE 2.34 10/3/uL (0.67-4.30); MEAN CORPUS HGB CONC 32.9 g/dL (32.0-36.0); MEAN CORPUSCULAR VOLUME 94.2 fL (80-100); MEAN PLATELET VOLUME 12.7 fL (9.2-13.0); MONOCYTES 6.3 %; MONOCYTES ABSOLUTE 0.68 10/3/uL (0.21-1.20); NEUTROPHILS 68.6 %; NEUTROPHILS ABSOLUTE 7.44 10/3/uL (2.02-8.40); PLATELET COUNT 210 10/3/uL (150-400); RBC DISTRIBUTION WIDTH 15.5 % (12.0-16.0); RED CELL COUNT 3.78 10/6/uL (4.0-5.6); WHITE BLOOD CELLS 10.8 10/3/uL (4.5-10.5)
[2016-12-20 04:58] LABS: BUN (BLOOD UREA NITROGEN) 7 MG/DL (6-23); CHLORIDE, SERUM 114 MMOL/L (96-112); CO2 (CARBON DIOXIDE) 23 MMOL/L (24-34); CREATININE 0.71 MG/DL (0.55-1.02); GFR AFRICAN AMERICAN 99 ML/MIN (>=60); GFR NON AFRICAN AMERICAN 85 ML/MIN (>=60); GLUCOSE, SERUM 89 MG/DL (60-99); MANUAL DIFF NO %; PHOSPHORUS, SERUM 2.8 MG/DL (2.5-4.5); POTASSIUM, SERUM 3.9 MMOL/L (3.5-5.3); SODIUM, SERUM 144 MMOL/L (135-148)
[2016-12-21 07:31] LABS: BASOPHILS 0.2 %; BASOPHILS ABSOLUTE 0.02 10/3/uL (0.0-0.16); EOSINOPHILS ABSOLUTE 0.23 10/3/uL (0.0-0.53); HEMATOCRIT 36.6 % (36.0-48.0); IMMATURE GRANULOCYTES 0.3 %; IMMATURE GRANULOCYTES ABSOLUTE 0.03 10/3/uL (0.0-0.11); LYMPHOCYTES 19.9 %; LYMPHOCYTES ABSOLUTE 2.28 10/3/uL (0.67-4.30); MEAN CORPUS HGB CONC 32.8 g/dL (32.0-36.0); MEAN CORPUSCULAR HEMOGLOB 30.5 pg (26.0-34.0); MEAN CORPUSCULAR VOLUME 93.1 fL (80-100); MEAN PLATELET VOLUME 11.3 fL (9.2-13.0); MONOCYTES 6.4 %; MONOCYTES ABSOLUTE 0.74 10/3/uL (0.21-1.20); NEUTROPHILS 71.2 %; NEUTROPHILS ABSOLUTE 8.18 10/3/uL (2.02-8.40); PLATELET COUNT 223 10/3/uL (150-400); RBC DISTRIBUTION WIDTH 15.6 % (12.0-16.0); RED CELL COUNT 3.93 10/6/uL (4.0-5.6); WHITE BLOOD CELLS 11.5 10/3/uL (4.5-10.5)
[2016-12-21 07:32] LABS: MANUAL DIFF NO %
[2016-12-21 07:44] LABS: BUN (BLOOD UREA NITROGEN) 10 MG/DL (6-23); CALCIUM, SERUM 10.2 MG/DL (8.5-10.4); CHLORIDE, SERUM 118 MMOL/L (96-112); CO2 (CARBON DIOXIDE) 18 MMOL/L (24-34); CREATININE 0.68 MG/DL (0.55-1.02); GFR AFRICAN AMERICAN 101 ML/MIN (>=60); GFR NON AFRICAN AMERICAN 87 ML/MIN (>=60); GLUCOSE, SERUM 98 MG/DL (60-99); PHOSPHORUS, SERUM 3.1 MG/DL (2.5-4.5); POTASSIUM, SERUM 4.3 MMOL/L (3.5-5.3); SODIUM, SERUM 145 MMOL/L (135-148)
[2016-12-22 17:56] LABS: HSV DNA TYPE 1 Not Detected (NOTDET); HSV DNA TYPE 2 Not Detected (NOTDET)
[2016-12-25 20:49] LABS: H. INFLUENZAE TYPE B AG DET NOT DETECTED (()); N. MENING GRP B E COLI K1 AG NOT DETECTED (()); N. MENINGITIDIS GROUP A Y NOT DETECTED (()); N. MENINGITIDIS GRP C W135 NOT DETECTED (()); S. PNEMONIAE ANTIGEN DET NOT DETECTED (()); STREPTOCOCCUS GRP B AG DET NOT DETECTED (())
[2017-03-25] MEDS ORDERED: VOLTAREN1 % TOP (14:13)
[2017-03-25] MEDS ORDERED: METHOC500B PO ×2 (14:13→14:30)
[2017-03-25] MEDS ORDERED: PROTONIX20 MG PO (14:13)
[2017-03-25] MEDS ORDERED: DSS PO (14:14)
[2017-03-25] MEDS ORDERED: COREG25 PO (14:14)
[2017-03-25] MEDS ORDERED: SEROQUEL25 PO (14:15)
[2017-03-25] MEDS ORDERED: CLARIT10 PO (14:15)
[2017-03-25] MEDS ORDERED: KCL20UDL PO (14:16)
[2017-03-25] MEDS ORDERED: SPIRO25 PO (14:16)
[2017-03-25] MEDS ORDERED: BIOTIN5 MG PO (14:16)
[2017-03-25] MEDS ORDERED: Z300 PO (14:24)
[2017-03-25] MEDS ORDERED: VITC500 PO (14:27)
[2017-03-25] MEDS ORDERED: VITAMIN D31000 UNIT PO (14:28)
== END 2016-12-22 16:11 | DRG 689 ==
LOC: ER 11:33 → 4SO 14:27
PROVIDERS: Hospitalist; Internal Medicine; Nurse Practitioner
PROC: 009U3ZX Drainage of Spinal Canal, Percutaneous Approach, Diagnostic (ICD-10-PCS; principal; 2016-12-19)
DX: N39.0 Urinary tract infection, site not specified (principal); G93.41 Metabolic encephalopathy; L97.819 Non-pressure chronic ulcer of other part of right lower leg with unspecified severity; J44.9 Chronic obstructive pulmonary disease, unspecified; E44.1 Mild protein-calorie malnutrition; G30.9 Alzheimer's disease, unspecified; M41.50 Other secondary scoliosis, site unspecified; F02.80 Dementia in other diseases classified elsewhere, unspecified severity, without behavioral disturbance, psychotic disturbance, mood disturbance, and anxiety; Z88.2 Allergy status to sulfonamides; Z88.5 Allergy status to narcotic agent; Z88.1 Allergy status to other antibiotic agents; Z79.82 Long term (current) use of aspirin; Z79.891 Long term (current) use of opiate analgesic; G89.29 Other chronic pain; I89.0 Lymphedema, not elsewhere classified; R62.7 Adult failure to thrive; Z68.20 Body mass index [BMI] 20.0-20.9, adult; K59.03 Drug induced constipation; T40.2X5A Adverse effect of other opioids, initial encounter; M81.0 Age-related osteoporosis without current pathological fracture; B96.20 Unspecified Escherichia coli [E. coli] as the cause of diseases classified elsewhere; I10 Essential (primary) hypertension; I25.10 Atherosclerotic heart disease of native coronary artery without angina pectoris; Z95.1 Presence of aortocoronary bypass graft; Z95.5 Presence of coronary angioplasty implant and graft; Z95.0 Presence of cardiac pacemaker; I25.2 Old myocardial infarction; Z85.828 Personal history of other malignant neoplasm of skin
CPT/HCPCS: 62270; 70450; 71010; 74177; 74230; 77003; 80048; 80053; 81001; 82140; 82330; 82607; 82746; 82945; 82962; 83735; 84100; 84132; 84145; 84157; 84484; 85025; 86403; 86403-59; 86788; 86789; 87040; 87070; 87077; 87086; 87186; 87205; 87327; 87529; 87529-59; 88112; 89051; 92611-GN; 93005; 94640; 97110-GP; 97161-GP; 97530-GP; 99285; A9270-GY; Q9967